=== PATIENT | male | born 1940 | race African-American/Black ===

== ENCOUNTER 2020-07-14 12:50 | Emergency (ER) | payer MEDICARE ==
[~2020-07-14 12:50] MED LIST: METFORMIN HCL500 MG PO
[2020-07-14 13:18] LABS: BASOPHIL 1.1 % (0-2); EOSINOPHIL 7.8 % (0-7); HCT 49.5 % (42.0-52.0); HGB 16.1 g/dl (13.2-18.0); LYMPHOCYTE 25.7 % (15-48); MCHC 32.5 g/dL (32.0-36.0); MCV 95.2 fL (78.0-100.0); MPV 10.6 fL (6.0-9.5); NEUTROPHIL 54.2 % (41-80); NRBC 0; PLT 212 K/uL (150-400); RDW 13.2 % (11.5-14.0); WBC 6.2 K/uL (4.0-10.5)
[2020-07-14 13:34] LABS: INR 1.1 (0.9-1.2); PROTHROMBIN TIME 13.5 SECONDS (11.4-13.6); PTT 28.2 SECONDS (22.2-34.7)
[2020-07-14 13:50] LABS: ALBUMIN 4.2 g/dL (3.4-5.0); BILIRUBIN - TOTAL 0.7 mg/dL (0.2-1.0); BUN/CREAT RATIO (CALC) 15.1 RATIO; CREATININE 1.19 mg/dL (0.67-1.17); GLOBULIN (CALCULATION) 4.7 g/dL; POTASSIUM 5.2 mmol/L (3.5-5.1); TOTAL PROTEIN 8.9 g/dL (6.4-8.2)
== END 2020-07-16 01:30 | disposition other institution (70) ==
LOC: FER 12:50
PROVIDERS: Emergency Medicine
DX: I63.9 Cerebral infarction, unspecified (principal); R47.9 Unspecified speech disturbances; G81.91 Hemiplegia, unspecified affecting right dominant side; I10 Essential (primary) hypertension; E11.9 Type 2 diabetes mellitus without complications; Z86.73 Personal history of transient ischemic attack (TIA), and cerebral infarction without residual deficits; Z87.891 Personal history of nicotine dependence
CPT/HCPCS: 36415; 70450; 71045; 80053; 83880; 84484; 85025; 85610; 85730; 93005; J7030

== ENCOUNTER 2020-11-10 20:56 | Inpatient (IN) | payer MEDICARE ==
[~2020-11-10] VITALS: Ht 165.1 cm; Wt 63.6 kg
[2020-11-10 21:45] LABS: BASOPHIL 0.6 % (0-2); EOSINOPHIL 3.6 % (0-7); HCT 40.7 % (42.0-52.0); HGB 12.9 g/dl (13.2-18.0); LYMPHOCYTE 8.7 % (15-48); MCH 29.9 pg (25.0-31.0); MCHC 31.7 g/dL (32.0-36.0); MCV 94.4 fL (78.0-100.0); MPV 10.3 fL (6.0-9.5); NEUTROPHIL 79.6 % (41-80); NRBC 0; PLT 211 K/uL (150-400); RBC 4.31 M/uL (4.70-6.00); RDW 14.2 % (11.5-14.0); WBC 8.7 K/uL (4.0-10.5)
[2020-11-10 21:53] LABS: INR 1.2 (0.9-1.2); PROTHROMBIN TIME 14.6 SECONDS (11.8-13.4); PTT 32.9 SECONDS (24.4-34.7)
[2020-11-10 22:03] LABS: IRON % SATURATION 7.8 %SAT (20-50)
[2020-11-10 22:11] LABS: PRO-BNP 542 pg/mL (<450)
[2020-11-10 22:37] LABS: LACTIC ACID 2.5 mmol/L (0.4-1.9)
[2020-11-10 22:38] LABS: ALBUMIN 3.4 g/dL (3.4-5.0); BILIRUBIN - TOTAL 1.1 mg/dL (0.2-1.0); BUN/CREAT RATIO (CALC) 9.6 RATIO; C-REACTIVE PROTEIN 12.2 mg/dL (<=0.90); CREATININE 0.94 mg/dL (0.67-1.17); GLOBULIN (CALCULATION) 5.2 g/dL; MAGNESIUM 1.7 mg/dL (1.8-2.4); POTASSIUM 4.3 mmol/L (3.5-5.1); TOTAL PROTEIN 8.6 g/dL (6.4-8.2)
[2020-11-10 22:57] LABS: BILIRUBIN NEGATIVE (NEGATIVE); BLOOD TRACE-INTACT Ery/uL (NEGATIVE); COLOR YELLOW (YELLOW); GLUCOSE (U) NORMAL (NORMAL); LEUKOCYTES 2+ Leu/uL (NEGATIVE); NITRITE POSITIVE (NEGATIVE); PROTEIN 1+ mg/dL (NEGATIVE); UROBILINOGEN >=8.0 mg/dL (0.2-1.0)
[2020-11-10 22:59] LABS: CLARITY HAZY (CLEAR)
[2020-11-10 23:05] LABS: BACTERIA 3+; URINARY WBC TNTC
[2020-11-11] MEDS ORDERED: ATORVASTATIN CA40 MG PO (04:31)
[2020-11-11 07:07] LABS: BASOPHIL 0.4 % (0-2); EOSINOPHIL 4.3 % (0-7); HCT 36.8 % (42.0-52.0); HGB 11.7 g/dl (13.2-18.0); LYMPHOCYTE 22.1 % (15-48); MCH 29.8 pg (25.0-31.0); MCHC 31.8 g/dL (32.0-36.0); MCV 93.6 fL (78.0-100.0); MONOCYTE 11.3 % (0-12); MPV 10.7 fL (6.0-9.5); NEUTROPHIL 61.6 % (41-80); PLT 180 K/uL (150-400); RBC 3.93 M/uL (4.70-6.00); RDW 14.2 % (11.5-14.0); WBC 7.7 K/uL (4.0-10.5)
[2020-11-11 07:28] LABS: CREATININE 0.9 mg/dL (0.67-1.17); POTASSIUM 3.8 mmol/L (3.5-5.1)
[2020-11-11 07:43] LABS: LACTIC ACID 1.3 mmol/L (0.4-1.9)
[2020-11-11 08:50] LABS: BAND 21 % (0-10); EOSINOPHIL(M) 3 % (0-7); LYMPHOCYTE(M) 12 % (15-48); MONOCYTE(M) 20 % (0-12); NEUTROPHILS(M) 44 % (41-80); PLATELET ESTIMATE NORMAL; PLATELET MORPHOLOGY NORMAL; TOTAL CELL COUNT 100
[2020-11-11] MEDS ORDERED: BRILINTA90 MG PO (09:00)
[2020-11-11] MEDS ORDERED: TAMSULOSIN HCL0.4 MG PO (09:02)
[2020-11-11] MEDS ORDERED: METOPROLOL SUCC50 MG PO (09:02)
[2020-11-11] MEDS ORDERED: ASPIRIN EC81 MG PO (09:03)
--- NOTE | 2020-11-11 16:49 | NUR ---
MET WITH PT. HE STATED THAT HE USES A ROLLING WALKER AND HAS A SHOWER SEAT. HE DOES NOT CURRENTLY HAVE HH AND IS UNSURE IF HE WILL NEED HH. HE RESIDES AT HOME WITH HIS .
[2020-11-12 05:57] LABS: BASOPHIL 0.4 % (0-2); EOSINOPHIL 0 % (0-7); HGB 11.5 g/dl (13.2-18.0); LYMPHOCYTE 14.5 % (15-48); MCH 29.8 pg (25.0-31.0); MCHC 31.9 g/dL (32.0-36.0); MCV 93.3 fL (78.0-100.0); MONOCYTE 5.3 % (0-12); MPV 10.3 fL (6.0-9.5); NEUTROPHIL 79.4 % (41-80); NRBC 0; PLT 203 K/uL (150-400); RBC 3.86 M/uL (4.70-6.00); RDW 14.3 % (11.5-14.0); WBC 7.2 K/uL (4.0-10.5)
[2020-11-12 06:20] LABS: ALBUMIN 2.5 g/dL (3.4-5.0); BILIRUBIN - TOTAL 0.5 mg/dL (0.2-1.0); BUN/CREAT RATIO (CALC) 13.9 RATIO; C-REACTIVE PROTEIN 11.4 mg/dL (<=0.90); CREATININE 0.79 mg/dL (0.67-1.17); GLOBULIN (CALCULATION) 4.1 g/dL; MAGNESIUM 1.5 mg/dL (1.8-2.4)
[2020-11-12 06:22] LABS: TOTAL PROTEIN 6.6 g/dL (6.4-8.2)
--- NOTE | 2020-11-12 14:49 | NUR ---
11/12/20 This social work specialist met with Asaf Hernández. They are interested in resources for transportation and homemaking. They were referred to [facility] and [facility].
[2020-11-13 06:02] LABS: BASOPHIL 0.5 % (0-2); EOSINOPHIL 1.6 % (0-7); HCT 39.2 % (42.0-52.0); HGB 12.6 g/dl (13.2-18.0); MCHC 32.1 g/dL (32.0-36.0); MCV 93.3 fL (78.0-100.0); MONOCYTE 9.4 % (0-12); MPV 10.6 fL (6.0-9.5); NEUTROPHIL 60.7 % (41-80); NRBC 0; PLT 259 K/uL (150-400); RDW 14.4 % (11.5-14.0); WBC 11.9 K/uL (4.0-10.5)
[2020-11-13 06:14] LABS: BUN/CREAT RATIO (CALC) 13.2 RATIO; CREATININE 0.68 mg/dL (0.67-1.17); POTASSIUM 3.6 mmol/L (3.5-5.1)
[2020-11-13 06:17] LABS: LYMPHOCYTE 27.5 % (15-48)
--- NOTE | 2020-11-13 15:09 | NUR ---
11/13/20 Discharge is anticipated for Tuesday, 10/15. A referral was made to [facility] per spouse's choice for PT only. Please notify [facility] at [phone] if patient discharges over the weekend.
[2020-11-14 08:04] LABS: BASOPHIL 0.7 % (0-2); HCT 37.8 % (42.0-52.0); LYMPHOCYTE 25.1 % (15-48); MCH 29.6 pg (25.0-31.0); MCHC 31.7 g/dL (32.0-36.0); MCV 93.1 fL (78.0-100.0); MONOCYTE 9.7 % (0-12); MPV 10.1 fL (6.0-9.5); NEUTROPHIL 56.1 % (41-80); NRBC 0; PLT 246 K/uL (150-400); RBC 4.06 M/uL (4.70-6.00); RDW 14.5 % (11.5-14.0); WBC 9.8 K/uL (4.0-10.5)
[2020-11-14 08:14] LABS: CREATININE 0.79 mg/dL (0.67-1.17); POTASSIUM 3.7 mmol/L (3.5-5.1)
[2020-11-14 08:15] LABS: ALBUMIN 2.7 g/dL (3.4-5.0); BILIRUBIN - TOTAL 0.5 mg/dL (0.2-1.0); GLOBULIN (CALCULATION) 4.3 g/dL
[2020-11-15 07:03] LABS: BASOPHIL 0.6 % (0-2); EOSINOPHIL 10.3 % (0-7); HCT 35.5 % (42.0-52.0); HGB 11.3 g/dl (13.2-18.0); LYMPHOCYTE 24.2 % (15-48); MCH 29.7 pg (25.0-31.0); MCHC 31.8 g/dL (32.0-36.0); MCV 93.4 fL (78.0-100.0); MONOCYTE 8.8 % (0-12); MPV 10.4 fL (6.0-9.5); NEUTROPHIL 55.6 % (41-80); NRBC 0; PLT 249 K/uL (150-400); RDW 14.6 % (11.5-14.0); WBC 10.6 K/uL (4.0-10.5)
[2020-11-15 07:16] LABS: ALBUMIN 2.6 g/dL (3.4-5.0); BILIRUBIN - TOTAL 0.4 mg/dL (0.2-1.0); BUN/CREAT RATIO (CALC) 12.8 RATIO; CREATININE 0.86 mg/dL (0.67-1.17); GLOBULIN (CALCULATION) 4.3 g/dL; POTASSIUM 3.7 mmol/L (3.5-5.1); TOTAL PROTEIN 6.9 g/dL (6.4-8.2)
--- NOTE | 2020-11-15 10:41 | NUR ---
Please notify [facility] if pt is DC over weekend
[2020-11-16 05:48] LABS: BASOPHIL 0.5 % (0-2); EOSINOPHIL 10.2 % (0-7); HCT 34.8 % (42.0-52.0); HGB 11.4 g/dl (13.2-18.0); LYMPHOCYTE 22.4 % (15-48); MCH 30.4 pg (25.0-31.0); MCHC 32.8 g/dL (32.0-36.0); MCV 92.8 fL (78.0-100.0); MONOCYTE 7.8 % (0-12); MPV 9.8 fL (6.0-9.5); NEUTROPHIL 58.6 % (41-80); NRBC 0; PLT 265 K/uL (150-400); RBC 3.75 M/uL (4.70-6.00); RDW 14.6 % (11.5-14.0); WBC 10.7 K/uL (4.0-10.5)
[2020-11-16 06:08] LABS: ALBUMIN 2.6 g/dL (3.4-5.0); BILIRUBIN - TOTAL 0.6 mg/dL (0.2-1.0); BUN/CREAT RATIO (CALC) 11.4 RATIO; CREATININE 0.88 mg/dL (0.67-1.17); GLOBULIN (CALCULATION) 4.5 g/dL; POTASSIUM 3.9 mmol/L (3.5-5.1); TOTAL PROTEIN 7.1 g/dL (6.4-8.2)
--- NOTE | 2020-11-16 15:31 | NUR ---
CALLED [facility] AT [phone] TALKED TO ELOISA MCCONNELL HER OF [facility] TODAY. PAPER WORK FAXED TO [phone].
== END 2020-11-16 16:30 | disposition home health service (06) | DRG 871 ==
LOC: FER 20:56 → FMS 11-11 01:07
PROVIDERS: Emergency Medicine; Family Medicine; Nurse Practitioner; ADMIT Internal Medicine
DX: A41.9 Sepsis, unspecified organism (principal); G93.41 Metabolic encephalopathy; N30.01 Acute cystitis with hematuria; I69.351 Hemiplegia and hemiparesis following cerebral infarction affecting right dominant side; Z20.822 Contact with and (suspected) exposure to COVID-19; R65.20 Severe sepsis without septic shock; E11.9 Type 2 diabetes mellitus without complications; K74.60 Unspecified cirrhosis of liver; B96.20 Unspecified Escherichia coli [E. coli] as the cause of diseases classified elsewhere; Z88.8 Allergy status to other drugs, medicaments and biological substances; Z90.49 Acquired absence of other specified parts of digestive tract; Z98.890 Other specified postprocedural states; Z82.49 Family history of ischemic heart disease and other diseases of the circulatory system
CPT/HCPCS: 36415; 70450; 71045; 71250; 80048; 80053; 81001; 82728; 82962; 83540; 83550; 83605; 83615; 83735; 83880; 84145; 84484; 85025; 85610; 85730; 86140; 87040; 87077; 87088; 87186; 93005; 94010; 94640; 94760; 97110; 97162; 97166; 97530-GP; 97535; J0696; J1630; J1650; J2185; J2543; J3370; J7030; J7050; J8540; U0002

== ENCOUNTER 2021-04-27 22:17 | Emergency (ER) | payer MEDICARE ==
[~2021-04-27 22:17] MED LIST changes: +ASPIRIN EC81 MG PO; +ATORVASTATIN CA40 MG PO; +BRILINTA90 MG PO; +METOPROLOL SUCC50 MG PO; +TAMSULOSIN HCL0.4 MG PO
== END 2021-04-28 02:01 | disposition home or self-care (01) ==
LOC: FER 22:17
DX: S42.291A Other displaced fracture of upper end of right humerus, initial encounter for closed fracture (principal); S42.251A Displaced fracture of greater tuberosity of right humerus, initial encounter for closed fracture; S42.211A Unspecified displaced fracture of surgical neck of right humerus, initial encounter for closed fracture; S09.90XA Unspecified injury of head, initial encounter; I10 Essential (primary) hypertension; I69.951 Hemiplegia and hemiparesis following unspecified cerebrovascular disease affecting right dominant side; Y92.009 Unspecified place in unspecified non-institutional (private) residence as the place of occurrence of the external cause; W01.0XXA Fall on same level from slipping, tripping and stumbling without subsequent striking against object, initial encounter; Z79.02 Long term (current) use of antithrombotics/antiplatelets
CPT/HCPCS: 70450; 72125; 73030; 73060

== ENCOUNTER 2021-09-23 20:40 | Inpatient (IN) | payer MEDICARE ==
[~2021-09-23] VITALS: Ht 167.6 cm; Wt 81.3 kg
[2021-09-23 21:36] LABS: BASOPHIL 0.4 % (0-2); EOSINOPHIL 0.9 % (0-7); HCT 44.1 % (42.0-52.0); LYMPHOCYTE 7.2 % (15-48); MCH 30.5 pg (25.0-31.0); MCHC 31.7 g/dL (32.0-36.0); MCV 96.1 fL (78.0-100.0); MONOCYTE 2.6 % (0-12); MPV 10.7 fL (6.0-9.5); NEUTROPHIL 88.7 % (41-80); NRBC 0; PLT 206 K/uL (150-400); RBC 4.59 M/uL (4.70-6.00); RDW 13.9 % (11.5-14.0); WBC 10.4 K/uL (4.0-10.5)
[2021-09-23 21:52] LABS: ALBUMIN 3.6 g/dL (3.4-5.0); BILIRUBIN - TOTAL 0.9 mg/dL (0.2-1.0); BUN/CREAT RATIO (CALC) 11.7 RATIO; CREATININE 1.37 mg/dL (0.67-1.17); GLOBULIN (CALCULATION) 4.6 g/dL; POTASSIUM 4.1 mmol/L (3.5-5.1); TOTAL PROTEIN 8.2 g/dL (6.4-8.2)
[2021-09-23 21:59] LABS: CORONAVIRUS 2019 SARS-COV-2 NEGATIVE (NEGATIVE); INFLUENZA A NAA NEGATIVE (NEGATIVE)
[2021-09-23 22:02] LABS: BILIRUBIN NEGATIVE (NEGATIVE); BLOOD TRACE-INTACT Ery/uL (NEGATIVE); CLARITY CLEAR (CLEAR); COLOR YELLOW (YELLOW); GLUCOSE (U) NORMAL (NORMAL); LEUKOCYTES NEGATIVE Leu/uL (NEGATIVE); NITRITE NEGATIVE (NEGATIVE); PROTEIN 1+ mg/dL (NEGATIVE)
[2021-09-23 22:11] LABS: LACTIC ACID 2.1 mmol/L (0.4-1.9)
[2021-09-23 22:15] LABS: BACTERIA 3+
[2021-09-24] MEDS ORDERED: PROSCAR5 MG PO (00:13)
[2021-09-24] MEDS ORDERED: LIPITOR40 MG PO (00:13)
[2021-09-24] MEDS ORDERED: ASPIRIN EC81 MG PO (00:14)
[2021-09-24] MEDS ORDERED: FLOMAX0.4 MG PO (00:14)
[2021-09-24 06:37] LABS: BASOPHIL 0.4 % (0-2); EOSINOPHIL 0.1 % (0-7); HCT 39.8 % (42.0-52.0); HGB 12.7 g/dl (13.2-18.0); LYMPHOCYTE 7.2 % (15-48); MCH 30.4 pg (25.0-31.0); MCHC 31.9 g/dL (32.0-36.0); MCV 95.2 fL (78.0-100.0); MONOCYTE 7.2 % (0-12); MPV 11.6 fL (6.0-9.5); NEUTROPHIL 84.6 % (41-80); NRBC 0; PLT 162 K/uL (150-400); RBC 4.18 M/uL (4.70-6.00); RDW 13.8 % (11.5-14.0)
[2021-09-24 06:38] LABS: ALBUMIN 2.8 g/dL (3.4-5.0); BILIRUBIN - TOTAL 1.2 mg/dL (0.2-1.0); BUN/CREAT RATIO (CALC) 12.7 RATIO; CREATININE 1.5 mg/dL (0.67-1.17); FT4 (FREE T4) 1.2 ng/dL (0.76-1.46); GLOBULIN (CALCULATION) 3.9 g/dL; PHOSPHORUS 1.6 mg/dL (2.6-4.7); POTASSIUM 3.7 mmol/L (3.5-5.1); TOTAL PROTEIN 6.7 g/dL (6.4-8.2)
[2021-09-24 06:40] LABS: WBC 12.2 K/uL (4.0-10.5)
[2021-09-24 07:14] LABS: MAGNESIUM 1.9 mg/dL (1.8-2.4)
[2021-09-24] MEDS ORDERED: CEFDINIR300 MG PO (08:47)
[2021-09-24] MEDS ORDERED: ZYRTEC10 M3 PO (08:47)
--- NOTE | 2021-09-24 15:03 | NUR ---
09/24/21 Mr. Hernández demonstrated a decline in cognition and requested for the assessment to be conducted with his spouse. Ms. Hernández reported the following: Mr. Cary began having a decline in his cognition approximately a week ago. She reports his memory to have declined since admission. - Mr. Hernández has a rw, 3in1, Medical step stool, and transport wc. He has had [facility] in the past and they would like [facility] if needed at discharge. - PCP = Dr. Drake.
[2021-09-25 06:29] LABS: BASOPHIL 0.5 % (0-2); EOSINOPHIL 2.3 % (0-7); HCT 35.3 % (42.0-52.0); HGB 11.4 g/dl (13.2-18.0); MCH 30.3 pg (25.0-31.0); MCHC 32.3 g/dL (32.0-36.0); MCV 93.9 fL (78.0-100.0); MONOCYTE 4.7 % (0-12); MPV 11.5 fL (6.0-9.5); NEUTROPHIL 82.3 % (41-80); NRBC 0; PLT 173 K/uL (150-400); RBC 3.76 M/uL (4.70-6.00); RDW 14.2 % (11.5-14.0)
[2021-09-25 06:31] LABS: WBC 17.2 K/uL (4.0-10.5)
[2021-09-25 06:50] LABS: BUN/CREAT RATIO (CALC) 14.5 RATIO; CREATININE 1.45 mg/dL (0.67-1.17); MAGNESIUM 1.8 mg/dL (1.8-2.4); POTASSIUM 3.8 mmol/L (3.5-5.1)
[2021-09-26 06:00] LABS: BASOPHIL 0.6 % (0-2); EOSINOPHIL 3.7 % (0-7); HCT 35.8 % (42.0-52.0); HGB 11.8 g/dl (13.2-18.0); LYMPHOCYTE 10.2 % (15-48); MCH 30.6 pg (25.0-31.0); MONOCYTE 3.4 % (0-12); MPV 11.3 fL (6.0-9.5); NEUTROPHIL 80.4 % (41-80); NRBC 0; PLT 186 K/uL (150-400); RBC 3.85 M/uL (4.70-6.00); RDW 14.2 % (11.5-14.0)
[2021-09-26 06:22] LABS: WBC 18.1 K/uL (4.0-10.5)
[2021-09-26 06:40] LABS: ALBUMIN 2.4 g/dL (3.4-5.0); BILIRUBIN - TOTAL 0.5 mg/dL (0.2-1.0); BUN/CREAT RATIO (CALC) 14.2 RATIO; CREATININE 1.41 mg/dL (0.67-1.17); GLOBULIN (CALCULATION) 4.3 g/dL; POTASSIUM 3.6 mmol/L (3.5-5.1); TOTAL PROTEIN 6.7 g/dL (6.4-8.2)
[2021-09-27 06:42] LABS: BASOPHIL 0.8 % (0-2); EOSINOPHIL 4.6 % (0-7); HCT 36.1 % (42.0-52.0); HGB 11.9 g/dl (13.2-18.0); LYMPHOCYTE 15.2 % (15-48); MCH 30.9 pg (25.0-31.0); MCV 93.8 fL (78.0-100.0); MONOCYTE 6.5 % (0-12); MPV 11.9 fL (6.0-9.5); NEUTROPHIL 72.3 % (41-80); NRBC 0; PLT 199 K/uL (150-400); RBC 3.85 M/uL (4.70-6.00); RDW 14.1 % (11.5-14.0); WBC 12.7 K/uL (4.0-10.5)
[2021-09-27 07:20] LABS: BUN/CREAT RATIO (CALC) 12.2 RATIO; CREATININE 1.23 mg/dL (0.67-1.17)
[2021-09-28 07:07] LABS: BASOPHIL 1.1 % (0-2); HGB 12.4 g/dl (13.2-18.0); LYMPHOCYTE 17.3 % (15-48); MCH 30.5 pg (25.0-31.0); MCHC 32.6 g/dL (32.0-36.0); MCV 93.6 fL (78.0-100.0); MONOCYTE 10.5 % (0-12); MPV 11.2 fL (6.0-9.5); NEUTROPHIL 62.3 % (41-80); NRBC 0; PLT 230 K/uL (150-400); RBC 4.06 M/uL (4.70-6.00); RDW 14.2 % (11.5-14.0); WBC 10.7 K/uL (4.0-10.5)
[2021-09-28 07:36] LABS: ALBUMIN 2.6 g/dL (3.4-5.0); BILIRUBIN - TOTAL 0.7 mg/dL (0.2-1.0); BUN/CREAT RATIO (CALC) 10.2 RATIO; CREATININE 1.18 mg/dL (0.67-1.17); POTASSIUM 3.8 mmol/L (3.5-5.1); TOTAL PROTEIN 6.6 g/dL (6.4-8.2)
[2021-09-28] MEDS ORDERED: LEVAQUIN750 MG PO (10:51)
[2021-09-28] MEDS ORDERED: TOPROL XL 25MG25 MG PO (10:51)
[2021-09-28] MEDS ORDERED: SACCHAROMYCES250 MG PO (10:51)
[2021-09-28] MEDS ORDERED: ZESTRIL2.5 MG PO (10:51)
--- NOTE | 2021-09-29 14:19 | NUR ---
A referral was made was made to [facility] per spouse's choice.
== END 2021-09-28 13:33 | disposition home health service (06) | DRG 871 ==
LOC: FER 20:40 → FMS 23:03
PROVIDERS: Emergency Medicine; Nurse Practitioner; ADMIT Family Medicine
PROC: 3E03329 Introduction of Other Anti-infective into Peripheral Vein, Percutaneous Approach (ICD-10-PCS; principal; 2021-09-23)
PROC: B24BZZZ Ultrasonography of Heart with Aorta (ICD-10-PCS; 2021-09-25)
DX: A41.1 Sepsis due to other specified staphylococcus (principal); G93.41 Metabolic encephalopathy; N30.01 Acute cystitis with hematuria; Z16.12 Extended spectrum beta lactamase (ESBL) resistance; E87.2 Acidosis; N17.9 Acute kidney failure, unspecified; I42.9 Cardiomyopathy, unspecified; A41.51 Sepsis due to Escherichia coli [E. coli]; R65.20 Severe sepsis without septic shock; Z20.822 Contact with and (suspected) exposure to COVID-19; J32.9 Chronic sinusitis, unspecified; I12.9 Hypertensive chronic kidney disease with stage 1 through stage 4 chronic kidney disease, or unspecified chronic kidney disease; E11.22 Type 2 diabetes mellitus with diabetic chronic kidney disease; N18.9 Chronic kidney disease, unspecified; K74.60 Unspecified cirrhosis of liver; E78.5 Hyperlipidemia, unspecified; Z82.49 Family history of ischemic heart disease and other diseases of the circulatory system; Z90.49 Acquired absence of other specified parts of digestive tract; Z98.890 Other specified postprocedural states; Z86.73 Personal history of transient ischemic attack (TIA), and cerebral infarction without residual deficits; Z79.899 Other long term (current) drug therapy; Z88.8 Allergy status to other drugs, medicaments and biological substances; Z28.311 Partially vaccinated for COVID-19; Z79.82 Long term (current) use of aspirin
CPT/HCPCS: 36415; 70450; 70551; 71045; 80048; 80053; 80202; 81001; 83036; 83605; 83735; 84100; 84145; 84439; 84443; 84484; 85025; 87040; 87077; 87088; 87186; 93005; 94010; 94667; 94668; 94762; 97110; 97162; 97166; 97530; 97530-GP; 97535; J0692; J1650; J1956; J2543; J3370; J3475; J7030; J7040; J7050; U0002

== ENCOUNTER 2021-10-08 17:08 | Emergency (ER) | payer MEDICARE ==
[~2021-10-08 17:08] MED LIST changes: +CEFDINIR300 MG PO; +FLOMAX0.4 MG PO; +LEVAQUIN750 MG PO; +LIPITOR40 MG PO; +PROSCAR5 MG PO; +SACCHAROMYCES250 MG PO; +TOPROL XL 25MG25 MG PO; +ZESTRIL2.5 MG PO; +ZYRTEC10 M3 PO
[2021-10-08 17:48] LABS: BASOPHIL 1.9 % (0-2); EOSINOPHIL 3.6 % (0-7); HCT 44.4 % (42.0-52.0); LYMPHOCYTE 14.7 % (15-48); MCH 29.9 pg (25.0-31.0); MCHC 31.5 g/dL (32.0-36.0); MCV 94.7 fL (78.0-100.0); MONOCYTE 11.7 % (0-12); MPV 9.5 fL (6.0-9.5); NEUTROPHIL 67.6 % (41-80); NRBC 0; PLT 364 K/uL (150-400); RBC 4.69 M/uL (4.70-6.00); RDW 14.3 % (11.5-14.0); WBC 10.6 K/uL (4.0-10.5)
[2021-10-08 18:08] LABS: BILIRUBIN NEGATIVE (NEGATIVE); BLOOD TRACE-INTACT Ery/uL (NEGATIVE); CLARITY CLEAR (CLEAR); COLOR YELLOW (YELLOW); GLUCOSE (U) NORMAL (NORMAL); LEUKOCYTES NEGATIVE Leu/uL (NEGATIVE); NITRITE NEGATIVE (NEGATIVE); PROTEIN NEGATIVE (NEGATIVE); SPECIFIC GRAVITY 1.015 (1.001-1.030); UROBILINOGEN 0.2 mg/dL (0.2-1.0)
[2021-10-08 18:15] LABS: ALBUMIN 3.3 g/dL (3.4-5.0); BILIRUBIN - TOTAL 0.6 mg/dL (0.2-1.0); BUN/CREAT RATIO (CALC) 11.4 RATIO; CREATININE 2.37 mg/dL (0.67-1.17); GLOBULIN (CALCULATION) 5.9 g/dL; POTASSIUM 5.2 mmol/L (3.5-5.1); TOTAL PROTEIN 9.2 g/dL (6.4-8.2)
[2021-10-08 18:23] LABS: URINARY RBC RARE
[2021-10-08 18:24] LABS: LACTIC ACID 2.3 mmol/L (0.4-1.9)
[2021-10-08 20:30] LABS: MAGNESIUM 1.7 mg/dL (1.8-2.4); PHOSPHORUS 3.8 mg/dL (2.6-4.7)
== END 2021-10-08 22:55 | disposition home or self-care (01) ==
LOC: FER 17:08
PROVIDERS: Emergency Medicine
DX: R07.89 Other chest pain (principal); N17.9 Acute kidney failure, unspecified; I10 Essential (primary) hypertension; E11.9 Type 2 diabetes mellitus without complications; Z20.822 Contact with and (suspected) exposure to COVID-19
CPT/HCPCS: 36415; 70450; 71045; 80053; 81001; 83605; 83735; 84100; 84484; 85025; 93005; J7030; U0002